=== PATIENT | female | born 1940 | race Caucasian/White ===

== ENCOUNTER 2024-03-21 14:30 | Emergency (ER) | payer MEDICARE, OTHER, SELFPAY ==
[2024-03-21 14:33] VITALS: BP 178/68; PULSE 99; RESP 18; TEMP 36.6; O2SAT 97; BMI 25.1
--- NOTE | 2024-03-21 15:17 | EX.ED.DYSGE1 ---
HPI History of Present Illness Chief Complaint: Hypertension [facility] Medical History (Updated 03/21/24 @ 15:03 by Jolene Hsieh) Hypertension Allergy/AdvReac Type Severity Reaction Status Date / Time hydroxyzine Allergy Intermediate OTHER Verified 03/21/24 14:33 codeine Allergy Mild Nausea Verified 03/21/24 14:32 latex Allergy Mild Hives Verified 03/21/24 14:32 Family History (Updated 03/21/24 @ 15:04 by Jolene Hsieh) Other Alzheimer disease Diabetes Surgical History (Updated 03/21/24 @ 15:03 by Jolene Hsieh) History of hysterectomy Surgical History no surgical history Social History Smoking Status: Never smoker EXAM Physical Exam Const Vital Signs: 03/21/24 14:33 03/21/24 15:05 03/21/24 16:30 Temperature 97.9 F Temperature Source Temporal Pulse Rate 99 Respiratory Rate 18 Respiratory Effort Normal Non-Labored Blood Pressure 178/68 H 183/72 H Blood Pressure Mean 104 109 Pulse Ox 97 97 Oxygen Delivery Method Room Air Room Air MDM MDM MDM Narrative Medical decision making narrative: HISTORY OF PRESENT ILLNESS: 84-year-old female presents concern for elevated blood pressure. She states She has episodes where her blood pressure spikes and feel short of breath. Denies chest pain headache or blurred vision. Denies headache. Denies chest pain, shortness of breath. Denies leg swelling notes she has 4 episodes of elevated blood pressure per day. Is been going on for the last week or so. REVIEW OF SYSTEMS: Pertinent positives: Elevated blood pressure, shortness of breath Pertinent negatives: Headache, focal weakness, loss of vision, slurred speech, chest pain, leg swelling, decreased urination PHYSICAL EXAM: Nursing triage notes reviewed, Vital signs reviewed Constitutional: please see mdm HENT: MMM Eyes: Pupils equal round and reactive to light, Extraocular muscles intact Neck: No stridor, no JVD, full neck ROM Lungs: Clear to auscultation, No wheezing or rales. No increased work of breathing, no conversational dyspnea, no accessory muscle use, no nasal flaring. No respiratory distress noted Heart: Regular rate and rhythm, No murmurs, No rubs and No gallops, 2+ distal pulses (radial, femoral, posterior tibial) in all extremities Abdomen: Soft, there is no tenderness, rigidity, rebound or guarding, no obvious peritoneal signs, no palpable pulsatile abdominal masses, no auscultated abdominal bruit : No CVAT Extremities: No edema Neuro: Alert and oriented x3, neuro exam at baseline, cranial nerves II through XII are intact. No pain with extraocular muscle movement. There is negative test of skew. 5 of 5 strength in upper and lower extremities in flexion extension. Intact sensation to light touch in upper and lower extremity dermatomes. No truncal or extremity ataxia. No dysdiadochokinesia. Normal gait. 2+ reflexes in upper and lower extremities. No meningeal signs. Negative Babinski. NIH of 0. Skin: No rash or lesions noted MEDICAL DECISION MAKING: Chief Complaint: Elevated blood pressure External records reviewed: Reviewed prior imaging studies, cardiovascular studies, medications and allergies Factors affecting care: none noted in the chart. Patient self-reported Social determinants of health: none History obtained from others: none Consults: none MDM Narrative: The patient was initially hypertensive with blood pressure 178/68, otherwise afebrile and nontoxic-appearing. Exam without stigmata of CHF, no signs of neurologic deficits. NIH of 0. I considered the following differential diagnosis: Endorgan damage from elevated blood pressure ALL IMAGES (IF OBTAINED) HAVE BEEN PERSONALLY REVIEWED AND INTERPRETED BY MYSELF. EKG with normal sinus rhythm rate of 69, left ax deviation, normal intervals, no STEMI CBC without leukocytosis, severe anemia, no thrombocytopenia. BMP patient with hyponatremia, no significant electrolyte abnormalities, normal anion gap, no acute kidney injury High-sensitivity troponin is negative, no evidence of myocardial ischemia I have personally reviewed the patient's chest x-ray. Chest x-ray is unremarkable for pulmonary edema, pneumothorax, pneumonia or focal cardiopulmonary abnormality. CT scan of the brain was negative for ICH On reevaluation patient's blood pressure remained stable 183/72. No signs of endorgan damage on labs images. Discussed multiple antihypertensive interventions however the patient states she is very sensitive to medication and want to follow the primary care physician as an outpatient to undergo further blood pressure medication titration. Strict return precautions were discussed. Diet and lifestyle modifications were discussed to improve blood pressure. The patient and/or family, caregivers express understanding. The patient and/or family, caregivers agrees with the plan. Shared decision making: I will have a discussion with the patient and or visitors regarding risk/benefits of further testing or admission. They will be made aware of of the risk/benefits inherent in this decision they will be given the opportunity to voice understanding. Total critical care time today provided was at least 0 minutes. This excludes separately billable procedures. Critical care time (if documented) is secondary to the patient having high probability of clinically significant/life threatening deterioration in the patient's condition which required my urgent intervention. Impression: 1. Elevated blood pressure 2. Hypertension Dispo: Discharge home This note was generated with [employer] dictation software. It may contain incorrect words, spelling, and punctuation that were not noted in review of the chart prior to signing. Lab Data Labs: Laboratory Results - last 24 hr 03/21/24 15:52 WBC 6.8 RBC 4.43 Hgb 13.8 Hct 38.4 MCV 86.7 MCH 31.2 MCHC 35.9 RDW Std Deviation 39.0 RDW Coeff of Jeremy 12.3 Plt Count 223 MPV 10.7 Sodium 132 L Potassium 3.5 Chloride 101 Carbon Dioxide 26.0 Anion Gap 5 BUN 18 Creatinine 0.67 Estim Creat Clear Calc 48.96 Est GFR (MDRD) Af Amer 108 Est GFR (MDRD) Non-Af 89 BUN/Creatinine Ratio 26.7 H Glucose 109 H Calcium 9.4 Troponin I High Sens 11 Radiography Diagnostic Testing: Clinical Impression(s) from Imaging Studies Brain CT 03/21/24 15:39 IMPRESSION: Atrophy and severe diffuse periventricular white matter ischemic changes. No acute bleed. If concern for acute infarct MRI recommended Electronically Signed: Ranjit Mejia MD at 16:16 EST Reading Location ID and State: [facility] / [place] Tel [phone], Service support , Chest X-Ray 03/21/24 16:07 IMPRESSION: No acute cardiopulmonary pathology Electronically Signed: Ranjit Mejia MD at 16:17 EST , Discharge Plan Triage Chief Complaint: Hypertension ED Provider: Vamshi Yarbrough Dx/Rx/DC Orders Primary Care Provider: ERIKA WALKER Referrals: ERIKA WALKER MD [Primary Care Provider] - Print Language: Urdu
--- NOTE | 2024-03-21 15:39 | EKG12_ITS ---
Test Reason : Blood Pressure : */* mmHG Vent. Rate : 69 BPM Atrial Rate : 69 BPM P-R Int : 178 ms QRS Dur : 70 ms QT Int : 364 ms P-R-T Axes : 14 -33 21 degrees QTcB Int : 390 ms Normal sinus rhythm Left axis deviation Cannot rule out Anterior infarct , age undetermined Abnormal ECG Confirmed by SHIRA GARCIA, SERGIO ([id number]), food expeditor HONORIO SCHMITT ([id number]) on 03/25/2024 6:08:37 AM Referred By: Confirmed By: SERGIO SILVA MD
--- NOTE | 2024-03-21 15:39 | CT_ITS ---
STUDY: CT BRAIN WITHOUT CONTRAST REASON FOR EXAM: Female, 84 years old. HTN RADIATION DOSAGE (If Supplied By Facility): CTDIvol = ( 44.99 ) mGy, DLP = ( 796.11 ) mGycm TECHNIQUE: Transaxial CT imaging of the brain was performed without administration of intravenous contrast material. Individualized dose optimization techniques were used for this CT. COMPARISON: No relevant priors. FINDINGS: Normal soft tissue structures. Normal calvarium. Mild atrophy and severe diffuse bilateral periventricular white matter ischemic changes.. Normal basal ganglia and thalami. Normal brainstem. Normal cerebellum. There is no intracranial hemorrhage. There are no findings of an acute ischemic infarction. Normal visualized paranasal sinuses. Calcific plaquing of the cavernous carotids and right vertebral artery Postsurgical changes of the orbits CT/Brain/Head without Contrast IMPRESSION: Atrophy and severe diffuse periventricular white matter ischemic changes. No acute bleed. If concern for acute infarct MRI recommended Electronically Signed: Ranjit Mejia MD at 16:16 EST Reading Location ID and State: [facility] / [place] Tel , Service support ,
[2024-03-21 16:01] LABS: Hematocrit 38.4 % (37-47); Hemoglobin 13.8 g/dL (12.0-15.0); Mean Corp Hgb Conc 35.9 g/dL (32-36); Mean Corpuscular Hgb 31.2 pg (27.0-32.0); Mean Corpuscular Volume 86.7 fL (81-99); Mean Platelet Vol. 10.7 fl (6.2-12.0); Platelet Count 223 K/mm3 (150-450); RBC Distribution Width CV 12.3 % (11.6-14.6); Red Blood Count 4.43 M/mm3 (4.2-5.4); White Blood Count 6.8 K/mm3 (4.4-11.0)
--- NOTE | 2024-03-21 16:07 | RAD_ITS ---
STUDY: X-RAY CHEST REASON FOR EXAM: Female, 84 years old. HTN, r/o pulmonary edema TECHNIQUE: AP portable COMPARISON: None. FINDINGS: The lungs are clear and expanded. There is no demonstrated pleural abnormality. Normal size heart. Normal mediastinum and abhijit. Normal visualized pulmonary arteries. Mildly tortuous aortic arch and descending thoracic aorta. Dorsal spine and shoulders demonstrate degenerative change. Normal visualized ribs, and clavicles. There is no demonstrated abnormality of the visualized soft tissue structures of the upper abdomen. RAD/Chest 1 View (Portable) IMPRESSION: No acute cardiopulmonary pathology Electronically Signed: Ranjit Mejia MD at 16:17 EST ,
[2024-03-21 16:22] LABS: Anion Gap 5 (5-15); BUN 18 mg/dL (7-18); BUN/Creat Ratio 26.7 RATIO (10-20); Calcium,Total 9.4 mg/dL (8.5-10.1); Chloride 101 mmol/L (98-107); Creatinine, Serum 0.67 mg/dL (0.55-1.02); EST Glomerular Filtration Rate 89 mL/min (>60); Est Glom Filt Rate - Afr Amer 108 mL/min (>60); Estimated Creatinine Clearance 48.96 ml/min; Glucose 109 mg/dL (74-106); Potassium 3.5 mmol/L (3.5-5.1); Sodium Level 132 mmol/L (136-145); Troponin-I HS 11 pg/mL (3.0-54.0)
[2024-03-21 16:30] VITALS: BP 183/72; O2SAT 97
[2024-03-21 17:25] VITALS: BP 186/86; PULSE 70; RESP 16; TEMP 36.6; O2SAT 97
== END 2024-03-21 17:48 | disposition home or self-care (01) ==
PROVIDERS: Emergency Provider Emergency Medicine; PCP Family Medicine; Visit Provider Emergency Medicine
DX: I10 Essential (primary) hypertension (principal)
CPT/HCPCS: 70450; 71045; 80048; 84484; 85027; 93005; 99284; A4216